=== PATIENT | female | born 1965 | race Caucasian/White ===

== ENCOUNTER 2019-11-08 07:50 | Outpatient (CLI) | payer BC, SELFPAY ==
[2019-11-08 08:05] LABS: Hematocrit 43.6 % (35.0-49.0); Hemoglobin 14.4 g/dL (12.0-15.0); Mean Corpuscular Hemoglobin 29.4 pg (27.0-31.0); Mean Platelet Volume 9.4 fl (9.2-11.8); Platelet Count Result 231 K/mm3 (150-420); Red Cell Distribution Width 12.5 % (11.6-14.4); White Blood Count 5.2 K/mm3 (4.8-10.8)
[2019-11-08 08:12] LABS: Creatinine Urine 146.23 mg/dL (40-278)
[2019-11-08 08:18] LABS: MALB Creatinine Ratio 11.9 mg/g (0-30); Microalbumin Urine Random 17.5 mg/L
[2019-11-08 08:57] LABS: Alanine Aminotransferase 58 U/L (14-59); Albumin Level 3.8 g/dL (3.4-5.0); Alkaline Phosphatase 88 U/L (46-116); Anion Gap 15.5 mmol/L (7-16); Aspartate Amino Transferase 36 U/L (15-37); Bilirubin,Total 0.9 mg/dL (0.00-1.00); Blood Urea Nitrogen 16 mg/dL (7-18); Calcium 9.4 mg/dL (8.5-10.1); Carbon Dioxide 27 mmol/L (21-32); Chloride 100 mmol/L (98-108); Cholesterol 199 mg/dL (0-200); Estimated Glomerular Filt Rate > 60; Glucose 239 mg/dL (70-99); HDL Direct 55 mg/dL (40-60); LDL Cholesterol Calculated 116 mg/dL (<130); Osmolality Calculated 295 mOsm/kg (285-295); Potassium 4.5 mmol/L (3.5-5.1); Sodium 138 mmol/L (136-145); Thyroid Stimulating Hormone 2.51 uIU/mL (0.36-3.74); Total Protein 7.1 g/dL (6.4-8.2); Triglycerides 140 mg/dL (0-150)
== END 2019-11-08 07:51 | disposition home or self-care (01) ==
LOC: CHSLAB 07:53
PROVIDERS: PCP Family Medicine; Visit Provider Physician Assistant Medical
DX: E78.5 Hyperlipidemia, unspecified (principal); E11.8 Type 2 diabetes mellitus with unspecified complications; E11.65 Type 2 diabetes mellitus with hyperglycemia; I10 Essential (primary) hypertension
CPT/HCPCS: 36415; 80053; 80061; 82043; 84443; 85027

== ENCOUNTER 2022-11-20 08:41 | Outpatient (CLI) | payer OTHER, SELFPAY ==
[2022-11-20 09:05] LABS: Basophils Absolute Auto 0.03 K/mm3 (0.00-0.10); Basophils Percent Auto 0.6 % (0.0-1.0); Eosinophils Absolute Auto 0.09 K/mm3 (0.02-0.50); Eosinophils Percent Auto 1.8 % (1.0-6.0); Hematocrit 41.6 % (35.0-49.0); Hemoglobin 13.7 g/dL (12.0-15.0); Immature Granulocyte Absolute 0.05 K/mm3 (0.00-0.00); Lymphocytes Absolute Auto 1.24 K/mm3 (1.10-4.50); Lymphocytes Percent Auto 24.2 % (18.0-42.0); Mean Corpuscular HGB Conc 32.9 g/dL (32.0-36.0); Monocytes Absolute Auto 0.38 K/mm3 (0.10-0.90); Monocytes Percent Auto 7.4 % (2.0-11.0); Neutrophils Absolute Auto 3.3 K/mm3 (1.7-7.2); Platelet Count Result 236 K/mm3 (150-420); Red Blood Count 4.57 M/mm3 (4.20-5.40); Red Cell Distribution Width 13.2 % (11.6-14.4); White Blood Count 5.1 K/mm3 (4.8-10.8)
[2022-11-20 09:17] LABS: Creatinine Urine 105.19 mg/dL (40-278); MALB Creatinine Ratio 12.3 mg/g (0-30); Microalbumin Urine Random < 13.0 mg/L
[2022-11-20 10:06] LABS: Alanine Aminotransferase 55 U/L (14-59); Albumin Level 3.8 g/dL (3.4-5.0); Alkaline Phosphatase 81 U/L (46-116); Anion Gap 10 mmol/L (8-16); Aspartate Amino Transferase 28 U/L (15-37); Bilirubin,Total 0.7 mg/dL (0.00-1.00); Blood Urea Nitrogen 17 mg/dL (7-18); Calcium 9.4 mg/dL (8.5-10.1); Carbon Dioxide 29 mmol/L (21-32); Chloride 102 mmol/L (98-108); Cholesterol 208 mg/dL (0-200); Estimated Glomerular Filt Rate > 60; Glucose 151 mg/dL (70-99); HDL Direct 63 mg/dL (40-60); LDL Cholesterol Calculated 110 mg/dL (<130); Osmolality Calculated 296 mOsm/kg (285-295); Potassium 4.9 mmol/L (3.5-5.1); Sodium 141 mmol/L (136-145); Thyroid Stimulating Hormone 2.19 uIU/mL (0.36-3.74); Total Protein 7.1 g/dL (6.4-8.2); Triglycerides 175 mg/dL (0-150)
== END 2022-11-20 08:42 | disposition home or self-care (01) ==
PROVIDERS: PCP Family Medicine; Visit Provider Physician Assistant Medical
DX: E11.9 Type 2 diabetes mellitus without complications (principal); I10 Essential (primary) hypertension; E78.5 Hyperlipidemia, unspecified
CPT/HCPCS: 36415; 80053; 80061; 82043; 84443; 85025

== ENCOUNTER 2024-11-18 01:01 | Day surgery (SDC) | payer BC, SELFPAY ==
[2024-11-11 13:09] VITALS: BMI 35.2
--- OUTSIDE RECORDS SUMMARY | 2024-11-18 01:05 | XMS_ITS | Clinical Summary ---
Author Organization [facility] Address [address] [place] [address] Care Team Providers Care Venue Coordinator Name Role Phone Unavailable Primary Care Provider Unavailabl e Medications semaglutide (Ozempic) 1 mg/dose (4 mg/3 mL) Pen Injector Inject 1 mg by subcutaneous injection twice every 7 days to equal 2 mg dose for the week 6 mL 04/28/2023 2:35 PM CDT 3 Active Social History Tobacco Use Types Packs/Day Years Used Date Smoking Tobacco: Never Assessed Comments Unknown Sex and Gender Information Value Date Recorded Sex Assigned at Not on file Legal Sex Female 8:26 AM CDT Gender Identity Not on file Sexual Orientation Not on file Plan of Treatment Health Maintenance Due Date Last Done Comments DTAP/TDAP/TD VACCINES (1 - Tdap) 01/12/1984 HEPATITIS B VACCINES (1 of 3 - 19+ 3-dose series) 12/27 HPV/Cotest (21-29) 1986 CERVICAL CANCER SCREENING 1995 HPV/Cotest (30-65) 1995 PAP SMEAR 1995 BREAST CANCER SCREENING 2005 COLORECTAL SCREENING 2010 Colorectal Cancer Screening 2010 FIT-DNA Q 3 years 2010 FIT/FOBT Q 1 year 2010 Flex Sig/CT Colonography Q 5 years 2010 ZOSTER VACCINE (1 of 2) 2015 INFLUENZA VACCINE (#1) 2024
--- OUTSIDE RECORDS SUMMARY | 2024-11-18 01:05 | XMS_ITS | Continuity of Care Document ---
Author Organization [facility] Address [address] [place] [address] [address] [place] [address] Phone Care Team Providers Care Contract Design Agent Name Role Phone Thompson OD, Florian Unavailable Unavailable Procedures Procedure Date Eye Exam & Treatment Eye Exam & Treatment Advance Directives Directive Yes / No Effective Date File Name No Information Encounters Encounter Description Practice Location Reason(s) For Visit Diagnoses Date Provider Providers Copied on Encounter [facility], [address] [place] [address] [address], [place], [place], [id number], tel:[phone] [facility] No Information b-1 1-200 9 Thompson OD Florian. [address] , [address], [place], [address], [place]. tel:[phone] [facility], [address] [place] [address] [address], [place], [place], [id number], tel:[phone] [facility] No Information b-0 6-200 8 Thompson OD Florian. [address] , [address], [place], [address], [place]. tel:[phone] Family History Family Member Type Diagnosis Age At Onset No Information Payers Payer name Insurance type Covered republican ID Authoriza tion(s) No Information Social History Type Description Quantity Date Captured Comments Sex Female Smoking Status No Information Chief Complaint And Reason For Visit No Information Reason For Referral Reason For Referral No Information History Of Present Illness Encounter Date Complaint History Of Prese nt Illness No Information Functional Status Date Functional Assessmen t No Information Instructions Date Instruction Additional Infor mation No Information Assessments Type Assessment Date No Information Patient Care Teams Name Effective Dates (start - stop) Status Members No Information
[2024-11-18 10:14] VITALS: BP 144/75; PULSE 88; RESP 16; TEMP 36.2; O2SAT 100
[2024-11-18] MEDS: LACTATED RINGERS 1,000 ML 150 ML IV CONT (10:28)
[2024-11-18 10:29] LABS: Glucose Point of Care 116 mg/dl (65-105)
--- NOTE | 2024-11-18 10:41 | WPDANESEPPF ---
Anes - Initial Pre Proc Eval Procedure: Operation Date: 11/18/24 14:00 Proposed Procedures p Colonoscopy - Grant Gant MD Date/Time: 11/18/24 10:41 Surgeon: Grant Gant MD Pre Op Diagnosis: Personal history of colon polyps, unspecified Patient Data Age: 59 Gender: F Height: 1.65 m Weight: 91.7 kg Last Vital Signs Temp 36.2 C L 11/18/24 10:14 Pulse 88 11/18/24 10:14 Resp 16 11/18/24 10:14 BP 144/75 H 11/18/24 10:14 Pulse Ox 100 11/18/24 10:14 O2 Del Method Room Air 11/18/24 10:14 Allergies Allergy/AdvReac Type Severity Reaction Status Date / Time lisinopril Allergy Unknown Unknown Verified 11/18/24 10:12 meperidine Allergy Unknown passed out Verified 11/18/24 10:12 Home Medications ?Medication ?Instructions ?Recorded ?Confirmed ?Type blood sugar diagnostic (Contour #100 ea 06/11/21 10/21/24 Rx Next Test Strips) mupirocin 2 % topical ointment 1 applic topical BID #15 grams 06/11/21 11/11/24 Rx sulfacetamide sodium 10 % eye drops 1 drp ophthalmic (eye) Q4H #15 mL 09/01/23 11/18/24 Rx escitalopram oxalate 20 mg tablet See Rx Instructions .Route 01/07/24 11/18/24 Rx .COMPLEX #90 tabs buspirone 15 mg tablet 7.5 mg (1/2 x 15 mg) PO TID #90 03/02/24 11/18/24 Rx tabs trazodone 50 mg tablet 50 mg PO .qhs #90 tabs 06/05/24 11/18/24 Rx alprazolam 0.25 mg tablet (Xanax) 0.25 mg PO DAILY PRN anxiety #30 09/23/24 11/18/24 Rx tabs dapagliflozin propanediol 10 mg 10 mg PO DAILY #90 tabs 09/23/24 11/18/24 Rx tablet (Farxiga) metformin 500 mg tablet 1,000 mg (2 x 500 mg) PO BID #360 09/23/24 11/18/24 Rx tabs rosuvastatin 20 mg tablet (Crestor) 20 mg PO DAILY #90 tabs 10/04/24 11/18/24 Rx semaglutide 0.25 mg or 0.5 mg (2 0.25 mg (0.368 mL) subcut WEEKLY 10/21/24 11/18/24 Rx mg/3 mL) subcutaneous pen injector #3 mL (Ozempic) Laboratory Tests 11/18/24 10:25 POC Capillary Glucose 116 H mg/dl (65-105) Patient hx anesthesia problems: none Family hx anesthesia problems: none Results Review: All pre-operative results and documents have been reviewed as part of the pre-operative evaluation. [facility] Past Medical History Medical History BMI 30.0-30.9,adult BMI 32.0-32.9,adult BMI 33.0-33.9,adult Family History Family History Mother Diabetes mellitus Social History Social History Smoking status: Never smoker Second hand tobacco smoke exposure: No Alcohol intake: never Substance use: never Substance use type: does not use Lack of Transportation: No Lack of Food: Never True Current Housing: I Have Housing Concerned About Future Housing: No Difficulty Paying Gas/Electric Bills: No Difficulty Paying for Meds: No Currently Unemployed: No Education: Trade/Vocational Certificate Difficulty w/ Childcare or Family Care: No Living arrangements: with family Occupation/Education: occupation 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 Gender identity (if verbalized by the patient): Female Anes - Eval Final PreProcedure Day of Procedure 11/18/24 10:41 Patient weight: obese Heart: regular rate and rhythm Lungs: clear to auscultation Airway: Mallampati scale class II Neurological: alert and oriented Last oral intake: >/= 8 hours ASA classification: III Emergent: no Anesthetic plan: proceed Anesthesia type and monitoring: general GIVS and standard monitoring Results Review: All pre-operative results and documents have been reviewed as part of the pre-operative evaluation. Informed Consent: The patient's anesthetic plan and its attendant risks and benefits were discussed with the patient/family/POA. Questions were solicited and answers provided to the satisfaction of the patient/family/POA.
--- NOTE | 2024-11-18 11:04 | P.HP_ITS ---
History of Present Illness History of Present Illness Consent: Risks, benefits, and alternatives have been discussed and questions answered. Patient agrees to proceed with procedure. Chief complaint: Personal history of colon polyps, unspecified Narrative: Anne Marie Gill is a 59 year old female with colon polyp in 2018 Review of Systems Review of Systems: All systems reviewed & are unremarkable except as noted in HPI and below PMFSH Past Medical History Medical History BMI 30.0-30.9,adult BMI 32.0-32.9,adult BMI 33.0-33.9,adult Family History Family History Mother Diabetes mellitus Social History Social History Smoking status: Never smoker Second hand tobacco smoke exposure: No Alcohol intake: never Substance use: never Substance use type: does not use Lack of Transportation: No Lack of Food: Never True Current Housing: I Have Housing Concerned About Future Housing: No Difficulty Paying Gas/Electric Bills: No Difficulty Paying for Meds: No Currently Unemployed: No Education: Trade/Vocational Certificate Difficulty w/ Childcare or Family Care: No Living arrangements: with family Occupation/Education: occupation 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 Gender identity (if verbalized by the patient): Female Meds Home Medications and Allergies Home Medications ?Medication ?Instructions ?Recorded ?Confirmed ?Type blood sugar diagnostic (Contour #100 ea 06/11/21 10/21/24 Rx Next Test Strips) mupirocin 2 % topical ointment 1 applic topical BID #15 grams 06/11/21 11/11/24 Rx sulfacetamide sodium 10 % eye drops 1 drp ophthalmic (eye) Q4H #15 mL 09/01/23 11/18/24 Rx escitalopram oxalate 20 mg tablet See Rx Instructions .Route 01/07/24 11/18/24 Rx .COMPLEX #90 tabs buspirone 15 mg tablet 7.5 mg (1/2 x 15 mg) PO TID #90 03/02/24 11/18/24 Rx tabs trazodone 50 mg tablet 50 mg PO .qhs #90 tabs 12/08/24 05/23/25 Rx alprazolam 0.25 mg tablet (Xanax) 0.25 mg PO DAILY PRN anxiety #30 09/23/24 11/18/24 Rx tabs dapagliflozin propanediol 10 mg 10 mg PO DAILY #90 tabs 09/23/24 11/18/24 Rx tablet (Farxiga) metformin 500 mg tablet 1,000 mg (2 x 500 mg) PO BID #360 09/23/24 11/18/24 Rx tabs rosuvastatin 20 mg tablet (Crestor) 20 mg PO DAILY #90 tabs 10/04/24 11/18/24 Rx semaglutide 0.25 mg or 0.5 mg (2 0.25 mg (0.368 mL) subcut WEEKLY 10/21/24 11/18/24 Rx mg/3 mL) subcutaneous pen injector #3 mL (Ozempic) Allergies Allergy/AdvReac Type Severity Reaction Status Date / Time lisinopril Allergy Unknown Unknown Verified 11/18/24 10:12 meperidine Allergy Unknown passed out Verified 11/18/24 10:12 Vital Signs Vital Signs - 24 hr 11/18/24 10:14 Temperature 97.1 F L Pulse Rate 88 Respiratory Rate 16 Blood Pressure 144/75 H Pulse Oximetry 100 Oxygen Delivery Room Air Exam Const: General: comfortable and no acute distress HENMT: Face/Nose/Sinus: Normal nares present Eyes: General: appearance normal, both eyes and all related structures Neck: Neck: no JVD Resp: Auscultation: clear to auscultation bilaterally Cardio: Rate: regular rate Rhythm: regular rhythm GI: Inspection: non-distended GI Palp: Yes Soft to palpation Skin: General skin exam: normal color Neuro: Speech: normal speech Extrem: General: normal to inspection Psych: Mental Status: mental status grossly normal Assessment and Plan Assessment and plan (1) Hx of colonic polyps: Code(s): Z86.0100 - Personal history of colon polyps, unspecified Status: Acute Assessment and Plan: colonoscopy
[2024-11-18 11:25] VITALS: BP 101/62; PULSE 80; RESP 18; O2SAT 100
[2024-11-18 11:35] VITALS: BP 119/77; PULSE 76; RESP 24; O2SAT 100
[2024-11-18 11:47] VITALS: BP 115/68; PULSE 78; RESP 22; O2SAT 100
== END 2024-11-18 11:55 | disposition home or self-care (01) ==
PROVIDERS: PCP Family Medicine; Referring Provider Physician Assistant Medical; Visit Provider Internal Medicine Gastroenterology
PROC: 0DJD8ZZ Inspection of Lower Intestinal Tract, Via Natural or Artificial Opening Endoscopic (ICD-10-PCS; CPT 45378; principal; 2024-11-18 14:00)
DX: Z12.11 Encounter for screening for malignant neoplasm of colon (principal); D12.3 Benign neoplasm of transverse colon; Z79.84 Long term (current) use of oral hypoglycemic drugs; Z79.85 Long-term (current) use of injectable non-insulin antidiabetic drugs; E66.9 Obesity, unspecified; Z68.33 Body mass index [BMI] 33.0-33.9, adult
CPT/HCPCS: 45385; 82948; 88305; J2704; J7120